=== PATIENT | female | born 1940 | race Caucasian/White ===

== ENCOUNTER 2017-06-30 17:23 | Observation (INO) | payer MEDICARE, BC ==
[~2017-06-30 17:23] MED LIST: ISOVUE-370 76%-LOCM 1 ML ONE
[2017-06-30 18:06] LABS: #Eosinphils 0.1 thou/uL (0.0-0.7); #Lymphocytes 0.5 thou/uL (1.20-3.40); #Monocytes 0.3 thou/uL (0.11-0.59); #Neutrophils 9.4 thou/uL (1.40-6.50); %Basophils 0.2 % (0.0-1.0); %Eosinophils 0.8 % (0.0-10.0); %Lymphocytes 4.4 % (21.0-51.0); Hematocrit 41.4 % (36.0-47.0); Mean Platelet Volume 7.9 fL (7.4-10.4); Red Blood Cell (RBC) Count 4.31 mill/uL (4.20-5.40); White Blood Cell (WBC) Count 10.3 thou/uL (4.8-10.8)
[2017-06-30 18:30] LABS: ALT (SGPT) 17 U/L (8-55); AST (SGOT) 28 U/L (5-34); Alkaline Phosphatase 158 U/L (40-150); Anion Gap 16 mmol/L (10-20); BUN (Urea Nitrogen) 26 mg/dL (9.8-20.1); Bilirubin, Total 0.5 mg/dL (0.2-1.2); CK (CPK) 153 U/L (29-168); Calc. Creatinine Clearance 0 mL/min (70-130); Calcium 9.5 mg/dL (7.8-10.44); Carbon Dioxide 21 mmol/L (23-31); Chloride 96 mmol/L (98-107); Estimated GFR-MDRD 44; Globulin 3.8 g/dL (2.4-3.5); Lipase 44 U/L (8-78); Protein, Total 8.2 g/dL (6.0-8.3); Troponin I Less than 0.010 ng/mL (< 0.028)
--- NOTE | 2017-06-30 20:44 | RAD ---
AP VIEW OF THE CHEST: 06/30/17 INDICATION: Near syncope. COMPARISON: None. 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 There is mild cardiomegaly. There is mild bibasilar fibrosis versus a telectasis. There is some blunting of the left costophrenic angle which may reflect pleural thickeni ng or small pleural effusion. Chronic osseous changes are seen. POS: [facility]
[2017-06-30 20:55] LABS: Anion Gap 17 mmol/L (10-20); BUN (Urea Nitrogen) 23 mg/dL (9.8-20.1); Calc. Creatinine Clearance 0 mL/min (70-130); Calcium 9.3 mg/dL (7.8-10.44); Carbon Dioxide 20 mmol/L (23-31); Chloride 96 mmol/L (98-107); Estimated GFR-MDRD 56
--- NOTE | 2017-06-30 21:38 | CT ---
CTA OF THE THORAX UTILIZING IV CONTRAST WITH PE PROTOCOL AND 3D REFORMATTING IMAGING 06/30/17 INDICATION: 77-year-old female who had a near syncopal episode at work where she felt as though she was getting hotter and hotter and became diaphoretic. Patient states she currently feels normal. The episode las jason approximately 45 minutes. History of breast cancer. COMPARISON: None. FINDINGS: No central or segmental pulmonary embolus is evident. There are mild coronary artery calcifications. There are mild vascular calcifications of the thoracic aorta. There is a small amount of fluid in t he pericardial space. There is a small sized hiatal hernia. No pathologically enlarged lymph nodes a re grossly evident. A few shotty appearing lymph nodes are seen within the mediastinum. There are areas of subsegmental volume loss within the right middle lobe, lingula and both lower lob es are identified containing a left Bochdalek's hernia. There is tiny 5 mm pulmonary nodule in the l eft lower lobe. There is a 5 mm ground glass nodule in the left upper lobe on image 22 of series 3. There is a small sub 4 mm pulmonary nodule within the posterior right upper lobe. The visualized upp er abdomen is unremarkable for acute abnormality. There is scattered degenerative and osteoarthritic change. There is diffuse osteopenia. IMPRESSION: 1. No central or segmental pulmonary embolus. 2. Small amount of subsegmental volume loss right middle lobe, lingula and both lower lobes. 3. Scattered pulmonary nodules, largest measuring 5 mm within the left upper lobe. Patient has a history of breast cancer, followup examination in three months is recommended to document stabilit y. 4. Small hiatal hernia. Code LN POS: [facility]
--- NOTE | 2017-06-30 22:07 | HP ---
HISTORY OF PRESENT ILLNESS: Mrs. Angel is a 77-year-old woman. 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 She denies any associated chest pain. Denies any associated shortness of breath. She does not have any significant past medical history. No hypertension, diabetes, heart disease, o r lung disease. However, we have to mention that she was treated for breast cancer in the past and she is currently on hormone therapy. PAST SURGICAL HISTORY: Remarkable for lumpectomy due to breast cancer we mentioned earlier and she had previous and later hysterectomy. ALLERGIES: She does not have any known allergy. SOCIAL HISTORY: Does not smoke, does not drink. She claimed that she drank one beer every day, one can of beer. MEDICATIONS: She at home she was on Nexium and also Celebrex. PHYSICAL EXAMINATION: GENERAL: She denies any fever, denies any weakness. HEENT: No headache, no ocular pain, no sore throat, no rhinorrhea, no earache, no epistaxis. NECK: No neck pain, no neck stiffness. CARDIOVASCULAR: No shortness of breath. No chest pain and she had the syncopal episode as mentione d earlier. She had this syncopal episode we mentioned earlier. PULMONARY: She denies any coughing. GASTROINTESTINAL: She had this upset stomach mentioned earlier and also she has history of GERD. GENITOURINARY: No dysuria, no hematuria. ENDOCRINOLOGY: No heat or cold intolerance. No polyuria, polydipsia, or polyphagia. MUSCULOSKELETAL: Admits to arthralgias on and off. HEMATOLOGY: No abnormal bleeding, no ecchymosis. LYMPHATIC: No palpable lymphadenopathy, no painful lymphadenopathy. SKIN: No rash, no itching. ALLERGIES: No hayfever. NEUROLOGIC: No seizure. PSYCHIATRIC: No anxiety, no depression. PHYSICAL EXAMINATION: At the current time. She is alert and oriented, in no distress. VITAL SIGNS: Show a temperature of 97.8, pulse rate 84, respiratory rate 18, and blood pressure 164 /89. HEENT: Head is normocephalic and atraumatic. Both her pupils were equal and reactive. Ears and no se are normal. Oral mucosa is moist. Pharyngeal area is clear with no exudate, no hyperemia. NECK: Supple. There is no distention of the jugular vein. No lymphadenopathy felt. Thyroid gland not palpable. There is no carotid bruit. CHEST: Symmetrical with regular S1, S2. Lungs are clear. ABDOMEN: Soft. Bowel sound heard. I could not appreciate any organomegaly. There is no focal are a of tenderness. Limbs are anatomically normal. EXTREMITIES: She has no edema of the lower extremities. NEUROLOGIC: Neurologically, she moves all extremities. LABORATORY DATA: Her CBC done earlier showed WBC of 10.3, hemoglobin of 14.3, hematocrit of 41.4, M CV of 96.1, and platelet 276. Chemistry and electrolytes show sodium of 129, potassium of 4.3, chlo ride 96, CO2 of 21, BUN 26, creatinine 1.2, glucose 100, calcium 9.5, total bilirubin 0.5, AST 29, A LT 17, alkaline phosphatase 158. CPK 153. Troponin is less than 1.01. Total protein 8.2, albumin 4.4, globulin 3.8, and lipase 44. ASSESSMENT AND PLAN: This is a 77-year-old woman with no significant past medical history except for breast cancer which was treated with lumpectomy for which she is currently on hormone th erapy, who came in with syncopal episode. Her serum sodium was noticed to be low, suggestive of pos sible dehydration. We will start her on normal saline. We will, however, a cardiac event cannot be excluded. She was noted to have many PVCs under monitor upon arrival. We will schedule her for st ress test and also for an echocardiogram. Cardiology consult was called from the ER. She will be a dmitted to telemetry. Further evaluation and management will depend on the course of the hospitaliz ation in her response to therapy. By the meantime, we will check her thyroid profile in view of her low serum sodium.
[2017-06-30] MEDS ORDERED: Ondansetron HCl/PF 4 MG/2 ML Vial IVP PRN (22:10)
[2017-06-30] MEDS ORDERED: Ondansetron ODT 4 MG TAB SL PRN (22:10)
[2017-06-30] MEDS ORDERED: Metoprolol Tartrate 25 MG TAB PO SCH (22:30)
[2017-06-30] MEDS ORDERED: Enoxaparin Sodium 40 MG/0.4 ML SYRINGE SC SCH (22:30)
[2017-06-30 23:10] LABS: Troponin I Less than 0.010 ng/mL (< 0.028)
[2017-06-30] MEDS: Sodium Chloride 0.9% 1,000 ML IV SCH (23:12)
[2017-07-01 00:49] VITALS: BMI 23.1
[2017-07-01 01:47] LABS: Troponin I Less than 0.010 ng/mL (< 0.028)
[2017-07-01 02:19] LABS: Anion Gap 17 mmol/L (10-20); BUN (Urea Nitrogen) 23 mg/dL (9.8-20.1); Calc. Creatinine Clearance 49 mL/min (70-130); Calcium 8.9 mg/dL (7.8-10.44); Carbon Dioxide 19 mmol/L (23-31); Chloride 98 mmol/L (98-107); Estimated GFR-MDRD 56
[2017-07-01] MEDS ORDERED: Estradiol 1 MG TAB PO SCH (09:00)
[2017-07-01] MEDS ORDERED: Enoxaparin Sodium 40 MG/0.4 ML SYRINGE SC SCH (09:00)
[2017-07-01] MEDS ORDERED: Aspirin 325 MG TAB PO SCH (09:00)
[2017-07-01] MEDS ORDERED: Metoprolol Tartrate 25 MG TAB PO SCH (09:00)
--- NOTE | 2017-07-01 13:19 | CON ---
DATE OF CONSULTATION: 07/01/2017 CARDIOLOGY CONSULTATION REASON FOR CONSULTATION: Syncope. HISTORY OF PRESENT ILLNESS: Mrs. Angel is a very pleasant 77-year-old white female who comes to the hospital for syncopal spell. 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 Yesterday, she was at her restaurant and she was working, she was helping out as the r estaurant was really busy. She felt it was really hot and she was sweating a lot. She eventually w as done with lunchtime service and when she sat down on the stool, she felt little dizzy and lighthe aded and then suddenly she just slumped over. One of the people at work caught her, so she never re ally injured herself or hit the ground, but EMS was called and they brought her in for further evalu ation. When EMS has got through, EKG showed sinus rhythm with several PVCs. No ischemic changes on EKG. PAST MEDICAL HISTORY: History of breast cancer. PAST SURGICAL HISTORY: 1. Lumpectomy done by Dr. Tang several years back. 2. and hysterectomy. OUTPATIENT MEDICATIONS: 1. Celebrex. 2. Nexium. ALLERGIES: No known drug allergies. SOCIAL HISTORY: No tobacco or drugs. She drinks a can of beer every day. REVIEW OF SYSTEMS: A 12-point review of systems was done and is all negative unless stated in the hi story of present illness. PHYSICAL EXAMINATION: VITAL SIGNS: Temperature 98.6, pulse 73, respiratory rate 20, satting 95% on room air, blood pressu re 131/71. GENERAL: Awake, alert, and oriented x3, in no distress. HEENT: Normocephalic, atraumatic. NECK: Supple. LUNGS: Clear. CARDIOVASCULAR: S1, S2, no S3, S4, no murmurs or rubs. ABDOMEN: Soft, positive bowel sounds. EXTREMITIES: No edema. SKIN: Warm and dry. LABORATORY DATA: Laboratory work was reviewed. Sodium was low at 128 on admission, up to 129 with some fluids, normal potassium, chloride of 96, carbon dioxide 20, anion gap of 17, BUN of 23, creati nine 0.97, GFR of 56. Troponin was less than essay limit x3. TSH and free T4 were normal. Lipase was normal. Triglycerides of 64, cholesterol total of 182, LDL of 122, HDL of 47. Coags were littl e bit high. CBC was normal. IMAGING: CT of the chest was reviewed, no pulmonary embolism. She did have small amount of subsegm ental volume loss in the right middle lobe and lingula on both lower lobes. There are scattered pul monary nodules, the largest measuring 5 mm in the left upper lobe. Recommendation to follow up CT i n 3 months. Chest x-ray was reviewed. EKG was reviewed, no ischemic changes. ASSESSMENT AND PLAN: Syncope: It sounds like she was a little dehydrated. She is feeling much bet ter now as she has received some fluids. The only reason that was found by EMS was just several pre mature ventricular contractions in which she was in sinus rhythm. She should be able to be discharg ed home if her stress is normal. Echocardiogram showed normal left ventricular function with no angel or valvular abnormalities. We will plan on following up with her in 1 month. If there is any recur rence, we will plan on link recorder for further evaluation of the syncope. Otherwise, she has kriss ined in sinus rhythm throughout her hospitalization on telemetry. Thank for allowing me to participate in the care of your patient. We will follow.
[2017-07-01] MEDS: Sodium Chloride 0.9% 1,000 ML IV SCH (13:44)
--- NOTE | 2017-07-01 13:51 | NM ---
MYOCARDIAL PERFUSION AND QUANTITATIVE GATED SPECT STUDY: HISTORY: Chest pain. Syncope. DOSE: Technetium 99m Cardiolite, 27 millicuries for stress portion of exam and 9 mm for the rest portion o f exam. TECHNIQUE: The patient was stressed using a Julio César protocol. Multiplanar myocardial perfusion images are obtained. FINDINGS: Images demonstrate no evidence of myocardial ischemia or scar. No evidence of a reversible defect i s seen. Ejection fraction measures 65%. IMPRESSION: Normal myocardial perfusion and quantitative gated SPECT study. POS: [facility]
[2017-07-01 13:53] VITALS: BP 143/76; TEMP 98.2
--- NOTE | 2017-07-01 15:27 | DIS ---
DATE OF ADMISSION: 06/30/2017 DATE OF DISCHARGE: 07/01/2017 PRIMARY CARE PHYSICIAN: Dr. Bernadine Hardy. DISCHARGE DIAGNOSIS: Syncope, no recurrence. CONDITION OF PATIENT AT THE TIME OF DISCHARGE: Stable. I assessed Ms. Angel on the day of discharge. She denies any chest pain or shortness of breath. Vit al signs are stable. S1 and S2 are heard, regular. Lungs are clear to auscultation bilaterally. DISCHARGE MEDICATIONS: Anastrozole 1 mg daily, celecoxib 100 mg daily, cetirizine 10 mg daily as ne eded, and Nexium 20 mg daily. HOSPITAL COURSE: Ms. Angel is a pleasant 77-year-old lady, who was admitted to [facility] on 06/30/2017 for a syncopal episode. She had CT scan of the chest, which did not reve al any central or segmental pulmonary embolus. She had a small amount of subsegmental volume loss a t the right middle lobe, lingula, and both lower lobes. She also had scattered pulmonary nodules. The radiologist recommends followup examination in 3 months to document stability. She was seen by Cardiology Service. She had a nuclear stress test, which was normal. Her left vent ricular ejection fraction was 65%. She also had a 2D echocardiogram, which showed an ejection fract ion estimated at 60% to 65%, normal left ventricular size and wall thickness and grade 1/3 diastolic dysfunction. Right ventricle was not clearly visualized. She is advised to follow up with Cardiology Service in 1 month and with her primary care provider in 3-5 days. Many thanks for allowing me to participate in your patient's care. Please feel free to contact me w ith any questions or concerns. DISCHARGE DESTINATION: Home.
--- NOTE | 2017-07-07 13:45 | STRESS ---
Acquisition Time: 2017-07-01 10:38:58 Total Exercise Time: 00:06:00 Test Indications: CHEST PAIN Medications: Protocol: PANCHO Max HR: 123 BPM 86% of Pred: 143 BPM Max BP: 160/082 mmHG Max Work Load: 7.0 METS RESTING ECG: NORMAL SINUS RHYTHM AT 79 BPM WITH OCCATIONAL PVCs. SYMPTOMS: NONE NORMAL BP RESPONSE ECTOPY: OCCATIONAL PVCs NOTED IN SHORT RUNS OF BIGEMINY ECG STRESS: 1MM DOWNSLOPING ST DEPRESSION INTERPRETATION: NEGATIVE GXT/AWAIT NUCLEAR IMAGES FOR DEFINITIVE DIAGNOSIS Confirmed by THOMAS OCAMPO M.D. ([id number] on 07/07/2017 1:44:59 PM Referred By: MD Naman MCCLAIN Confirmed By:THOMAS OCAMPO M.D.
== END 2017-07-01 14:55 | disposition home or self-care (01) ==
LOC: ERS 17:23 → 2SW 20:00
PROVIDERS: ADMIT Hospitalist; ATTEND Hospitalist
DX: R55 Syncope and collapse (principal); Z79.899 Other long term (current) drug therapy; Z90.11 Acquired absence of right breast and nipple; Z90.710 Acquired absence of both cervix and uterus; Z98.890 Other specified postprocedural states; Z87.891 Personal history of nicotine dependence
CPT/HCPCS: 71010; 71275; 78452; 80048 ×2; 80061; 82550; 82553; 83690; 84439; 84484 ×3; 85379; 93005; 93017; 93306; 94760 ×2; 96360; 96361; 96372 ×2; 99285; A9500; G0378; 36415; 80053; 84443; 85025; A4216; J1650

== ENCOUNTER 2019-04-08 07:59 | Outpatient (CLI) | payer MEDICARE, BC ==
--- NOTE | 2019-04-09 09:51 | NM ---
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 TECHNIQUE: Oral administration 252 uCi [id number] by pill. 6 hour and 24-hour radioiodine uptake studies performed. Thyroid scintigraphy in 3 views. FINDINGS: Scintigram demonstrates fairly homogeneous uptake between the left and right lobes with no obvious ho t or cold nodules. Six-hour uptake: 6% (normal range 6-18%) 24 hour uptake: 13% (normal range 10-30%). IMPRESSION: Normal
== END 2019-04-08 08:00 | disposition home or self-care (01) ==
LOC: NM 07:59
PROVIDERS: ATTEND Internal Medicine Endocrinology, Diabetes & Metabolism
DX: E05.90 Thyrotoxicosis, unspecified without thyrotoxic crisis or storm (principal)
CPT/HCPCS: 78014; A9516

== ENCOUNTER 2021-08-06 11:02 | Outpatient (CLI) | payer MEDICARE, BC | END 2021-08-06 11:03 | disposition home or self-care (01) | LOC: BICMAMMO 11:02 | PROVIDERS: ATTEND Internal Medicine | DX: Z12.31 Encounter for screening mammogram for malignant neoplasm of breast (principal); Z98.890 Other specified postprocedural states; Z85.3 Personal history of malignant neoplasm of breast | CPT/HCPCS: 77063; 77067 ==

== ENCOUNTER 2021-08-24 12:42 | Outpatient (CLI) | payer MEDICARE, BC | END 2021-08-24 12:43 | disposition home or self-care (01) | LOC: TBSIIMAG 12:42 | PROVIDERS: ATTEND Neurological Surgery | DX: M43.16 Spondylolisthesis, lumbar region (principal); M47.816 Spondylosis without myelopathy or radiculopathy, lumbar region; Z98.890 Other specified postprocedural states | CPT/HCPCS: 72100 ==

== ENCOUNTER 2021-10-27 10:37 | Outpatient (CLI) | payer MEDICARE, BC | END 2021-10-27 10:38 | disposition home or self-care (01) | LOC: TBSIIMAG 10:37 | PROVIDERS: ATTEND Neurological Surgery | DX: M48.062 Spinal stenosis, lumbar region with neurogenic claudication (principal); M47.816 Spondylosis without myelopathy or radiculopathy, lumbar region; Z98.890 Other specified postprocedural states | CPT/HCPCS: 72100 ==

== ENCOUNTER 2022-10-26 11:47 | Outpatient (CLI) | payer MEDICARE, BC | END 2022-10-26 11:48 | disposition home or self-care (01) | LOC: BICMAMMO 11:47 | PROVIDERS: ATTEND Internal Medicine | DX: Z12.31 Encounter for screening mammogram for malignant neoplasm of breast (principal); Z85.3 Personal history of malignant neoplasm of breast; Z98.890 Other specified postprocedural states | CPT/HCPCS: 77063; 77067 ==

== ENCOUNTER 2023-08-10 13:52 | Outpatient (CLI) | payer MEDICARE, BC ==
[2023-08-10 15:22] LABS: #Monocytes 0.5 10x3/uL (0.0-1.1); %Basophils 0.2 % (0.0-2.0); %Eosinophils 0.7 % (0.0-6.0); %Lymphocytes 24.1 % (18.0-47.0); %Monocytes 7.7 % (0.0-10.0); Hematocrit 35.6 % (34.9-44.5); Hemoglobin 12.2 g/dL (12.0-15.5); Mean Corpuscular HGB CONC 34.3 g/dL (32.0-36.0); Mean Corpuscular Volume 90.4 fl (81.6-98.3); Mean Platelet Volume 10.7 fl (7.4-10.4); Platelet Count 432 10x3/uL (150-450); RBC Distribution Width 10.8 % (11.5-14.5); Red Blood Cell (RBC) Count 3.94 10x6/uL (3.90-5.03)
[2023-08-10 15:37] LABS: Prothrombin Time 10.9 sec (9.5-12.1)
[2023-08-10 15:44] LABS: Anion Gap 15 mmol/L (10-20); BUN (Urea Nitrogen) 21 mg/dL (9.8-20.1); Calc. Creatinine Clearance 0 mL/min (70-130); Calcium 9.1 mg/dL (7.8-10.44); Carbon Dioxide 23 mmol/L (23-31); Chloride 99 mmol/L (98-107); Estimated GFR 65; Glucose 104 mg/dL (83-110); Potassium 4.6 mmol/L (3.5-5.1); Sodium 132 mmol/L (136-145)
== END 2023-08-10 13:53 | disposition home or self-care (01) ==
LOC: LABBT 13:52
PROVIDERS: ATTEND Orthopaedic Surgery
DX: Z01.818 Encounter for other preprocedural examination (principal); M17.12 Unilateral primary osteoarthritis, left knee
CPT/HCPCS: 80048; 85025; 85610; 87081; 93005; 93010

== ENCOUNTER 2023-08-14 06:28 | Observation (INO) | payer MEDICARE, BC ==
[2023-08-10 14:50] VITALS: BMI 21.5
[2023-08-14] MEDS ORDERED: Tranexamic Acid 1,000 MG/10 ML VIAL ONE (07:02)
[2023-08-14] MEDS ORDERED: Sodium Chloride 0.9% 100 ML ONE ×2 (07:03→09:33)
[2023-08-14] MEDS ORDERED: Vancomycin 1 GM/200 ML (FROZEN) BAG ONE (07:03)
[2023-08-14] MEDS ORDERED: fentaNYL 50 mcg/mL 1 mL Vial ONE ×2 (08:11→11:17)
[2023-08-14] MEDS ORDERED: Midazolam HCl 2 mg/2 ml Vial ONE (08:11)
[2023-08-14] MEDS ORDERED: Bupivacaine PF 0.5% 30 ML VIAL ONE ×2 (08:12→09:09)
[2023-08-14] MEDS ORDERED: fentaNYL 50 mcg/mL 1 mL Vial SLOW IVP PRN (09:03)
[2023-08-14] MEDS ORDERED: fentaNYL PF 100 MCG/2 ML SYRINGE ONE (09:03)
[2023-08-14] MEDS ORDERED: EPINEPHrine 1 MG/ML VIAL ONE (09:08)
[2023-08-14] MEDS ORDERED: HYDROcodone/Acetaminophen 10/325 mg Tablet PO PRN (09:15)
[2023-08-14] MEDS ORDERED: Zolpidem Tartrate 5 MG TAB PO PRN ×2 (09:15→09:33)
[2023-08-14] MEDS ORDERED: Ropivacaine 0.2% 550 ML 550 ML NERVE BLCK SCH (09:15)
[2023-08-14] MEDS ORDERED: Promethazine HCl 25 MG/ML VIAL IM PRN ×3 (09:15→11:08)
[2023-08-14] MEDS ORDERED: Ondansetron PF 4 MG/2 ML Vial IVP PRN ×2 (09:15→09:33)
[2023-08-14] MEDS ORDERED: traMADol HCl 50 MG TAB PO PRN ×2 (09:15)
[2023-08-14] MEDS ORDERED: CEFAZOLIN 2 GM VIAL ONE (09:20)
[2023-08-14] MEDS ORDERED: diphenhydrAMINE 25 MG CAP PO PRN (09:33)
[2023-08-14] MEDS ORDERED: Acetaminophen 325 MG TAB PO PRN (09:33)
[2023-08-14] MEDS ORDERED: Ondansetron PF 4 MG/2 ML Vial ONE (09:41)
[2023-08-14] MEDS ORDERED: Glycopyrrolate 0.2 MG/ML 5 ML SYRINGE ONE (09:41)
[2023-08-14] MEDS ORDERED: Lidocaine 1% PF 5 ML VIAL ONE (09:41)
[2023-08-14] MEDS ORDERED: Rocuronium Bromide 10 MG/ML (10ML VIAL) ONE (09:41)
[2023-08-14] MEDS ORDERED: PROPOFOL 200 MG/20 ML VIAL ONE (09:41)
[2023-08-14] MEDS ORDERED: NEOSTIGMINE 3 MG/3 ML SYR 3 MG/3 ML SYRINGE ONE (09:41)
[2023-08-14] MEDS ORDERED: Dexamethasone 20 MG/5 ML VIAL ONE (09:41)
[2023-08-14] MEDS ORDERED: Morphine Sulfate 2 MG/ML SYRINGE SLOW IVP PRN (11:08)
[2023-08-14] MEDS ORDERED: Ondansetron HCl/PF 4 MG/2 ML Vial IVP PRN (11:08)
[2023-08-14] MEDS: Ketorolac Tromethamine 30 MG/ML VIAL IVP SCH ×3 (13:32→23:50)
[2023-08-14] MEDS: HYDROcodone/Acetaminophen 10/325 mg Tablet PO PRN ×2 (13:57→21:08)
[2023-08-14] MEDS: Sodium Chloride 0.9% 1,000 ML IV SCH ×2 (13:58→17:25)
[2023-08-14] MEDS: CEFAZOLIN 2 GM in Sodium Chloride 0.9% 100 ML IVPB SCH ×2 (13:58→21:10)
[2023-08-14] MEDS: Senokot S 8.6-50 MG TAB PO SCH (21:07)
[2023-08-14] MEDS: Aspirin 81 mg Enteric Coated Tablet PO SCH (21:08)
[2023-08-14] MEDS: Ferrous Gluconate 324 MG TAB PO SCH (21:08)
[2023-08-15 03:53] VITALS: TEMP 98
[2023-08-15] MEDS: Sodium Chloride 0.9% 1,000 ML IV SCH (04:59)
[2023-08-15] MEDS: Ketorolac Tromethamine 30 MG/ML VIAL IVP SCH (05:27)
[2023-08-15 06:12] LABS: Hematocrit 27.2 % (36.0-47.0); Hemoglobin 9.3 g/dL (12.0-16.0); Mean Corpuscular HGB CONC 34.2 g/dL (32.0-36.0); Mean Corpuscular Hemoglobin 31.1 pg (27.0-31.0); Mean Platelet Volume 10.1 fL (7.4-10.4); Platelet Count 252 10x3/uL (130-400); Red Blood Cell (RBC) Count 2.99 mill/uL (4.20-5.40); White Blood Cell (WBC) Count 5.3 10x3/uL (4.8-10.8)
[2023-08-15 08:26] VITALS: BP 146/68
[2023-08-15] MEDS ORDERED: Multivitamin W/ Minerals 1 TAB PO SCH (09:00)
[2023-08-15] MEDS ORDERED: NIFEdipine XL 30 MG ER.TAB PO SCH (09:00)
[2023-08-15] MEDS ORDERED: Non-Formulary Item 1 EACH (Fexofenadine Hcl [Allegra Allergy] 180 MG Tablet) PO SCH (09:00)
[2023-08-15] MEDS ORDERED: Loratadine 10 MG TAB PO SCH (09:00)
[2023-08-15] MEDS ORDERED: Non-Formulary Item 1 EACH (Esomeprazole Magnesium [Nexium 24hr] 20 MG Tablet.Dr) PO SCH (09:00)
[2023-08-15] MEDS ORDERED: Montelukast Sodium 10 mg Tablet PO SCH (09:00)
[2023-08-15] MEDS: Senokot S 8.6-50 MG TAB PO SCH (09:22)
[2023-08-15] MEDS: Aspirin 81 mg Enteric Coated Tablet PO SCH (09:22)
[2023-08-15] MEDS: Ferrous Gluconate 324 MG TAB PO SCH (09:22)
[2023-08-15] MEDS: HYDROcodone/Acetaminophen 10/325 mg Tablet PO PRN (09:39)
== END 2023-08-15 11:13 | disposition home or self-care (01) ==
LOC: SDC 06:28 → SURG A 13:14
PROVIDERS: ADMIT Orthopaedic Surgery; ATTEND Orthopaedic Surgery
PROC: 0SRD0JZ Replacement of Left Knee Joint with Synthetic Substitute, Open Approach (ICD-10-PCS; principal; 2023-08-14)
DX: M17.12 Unilateral primary osteoarthritis, left knee (principal); I10 Essential (primary) hypertension; K21.9 Gastro-esophageal reflux disease without esophagitis; Z90.710 Acquired absence of both cervix and uterus; Z87.891 Personal history of nicotine dependence; Z79.899 Other long term (current) drug therapy
CPT/HCPCS: 27447; 73560; 85027; 97110 ×2; 97116 ×2; 97530; A4306; C1776; J0171; J3010; J3370; 36415; J1100; J1885; J2250; J2405; J2704; J2795; J3490; J7050; S0020

== ENCOUNTER → 2024-03-13 | Day surgery (SDC) | payer MEDICARE, BC ==
[2024-03-12 12:11] VITALS: BMI 19.8
[~2024-03-13] MED LIST changes: -ISOVUE-370 76%-LOCM 1 ML ONE; +PHENYLEPHRINE-NS 100 MCG/ML 10 ML SYRINGE ONE; +PROPOFOL 20 ML ONE
[2024-03-13 07:16] LABS: #Basophils Less than 0.03 10x3/uL (0.0-0.2); %Basophils 0.4 % (0.0-1.0); %Eosinophils 8.9 % (0.0-10.0); %Lymphocytes 30.3 % (21.0-51.0); %Monocytes 11.1 % (0.0-10.0); %Neutrophils 49.3 % (42.0-75.0); Hemoglobin 11.4 g/dL (12.0-16.0); Mean Corpuscular HGB CONC 32.6 g/dL (32.0-36.0); Mean Corpuscular Hemoglobin 28.5 pg (27.0-31.0); Mean Corpuscular Volume 87.5 fL (78.0-98.0); Platelet Count 361 10x3/uL (130-400); RBC Distribution Width 12.6 % (11.5-14.5)
[2024-03-13 07:34] LABS: Anion Gap 15 mmol/L (10-20); BUN (Urea Nitrogen) 18 mg/dL (9.8-20.1); Calc. Creatinine Clearance 36 mL/min (70-130); Calcium 8.9 mg/dL (7.8-10.44); Carbon Dioxide 22 mmol/L (23-31); Chloride 102 mmol/L (98-107); Estimated GFR 60; Glucose 95 mg/dL (83-110); Potassium 4.2 mmol/L (3.5-5.1); Sodium 135 mmol/L (136-145)
== END ==
LOC: SDC 06:08
PROVIDERS: ATTEND Internal Medicine Cardiovascular Disease
PROC: 5A2204Z Restoration of Cardiac Rhythm, Single (ICD-10-PCS; principal; 2024-03-13)
DX: I48.91 Unspecified atrial fibrillation (principal); E78.00 Pure hypercholesterolemia, unspecified; I10 Essential (primary) hypertension; I51.9 Heart disease, unspecified; I21.4 Non-ST elevation (NSTEMI) myocardial infarction; Z90.710 Acquired absence of both cervix and uterus; Z95.1 Presence of aortocoronary bypass graft; Z98.890 Other specified postprocedural states; Z79.82 Long term (current) use of aspirin; Z87.891 Personal history of nicotine dependence; Z79.899 Other long term (current) drug therapy; Z88.2 Allergy status to sulfonamides
CPT/HCPCS: 80048; 85025; 92960; 93005; J2704; 36415; 93010

== ENCOUNTER 2025-07-28 11:34 | Observation (INO) | payer MEDICARE, BC ==
[~2025-07-28 11:34] MED LIST changes: +Iopamidol-370 76% 500 ML MDV (1 ML CHARGE) ONE; -PHENYLEPHRINE-NS 100 MCG/ML 10 ML SYRINGE ONE; -PROPOFOL 20 ML ONE
[2025-07-28 12:39] LABS: #Basophils Less than 0.03 10x3/uL (0.0-0.2); #Eosinophils 0.17 10x3/uL (0.0-0.7); #Monocytes 0.66 10x3/uL (0.11-0.59); #Neutrophils 3.08 10x3/uL (1.40-6.50); %Basophils 0.4 % (0.0-1.0); %Eosinophils 3.4 % (0.0-10.0); %Lymphocytes 21.8 % (21.0-51.0); %Monocytes 13.1 % (0.0-10.0); %Neutrophils 60.9 % (42.0-75.0); Hematocrit 37.1 % (36.0-47.0); Hemoglobin 12.7 g/dL (12.0-16.0); Mean Corpuscular Hemoglobin 31.1 pg (27.0-31.0); Mean Corpuscular Volume 90.9 fL (78.0-98.0); Platelet Count 325 10x3/uL (130-400); Red Blood Cell (RBC) Count 4.08 mill/uL (4.20-5.40); White Blood Cell (WBC) Count 5.05 10x3/uL (4.8-10.8)
[2025-07-28 13:12] LABS: ALT (SGPT) 29 U/L (Less than 34); AST (SGOT) 62 U/L (11-34); Albumin 4.1 g/dL (3.1-4.5); Alkaline Phosphatase 240 U/L (40-110); Anion Gap 14 mmol/L (10-20); BUN (Urea Nitrogen) 12 mg/dL (9.8-20.1); Bilirubin, Total 0.5 mg/dL (0.3-1.2); Calc. Creatinine Clearance 0 mL/min (70-130); Calcium 8.7 mg/dL (7.8-10.44); Carbon Dioxide 23 mmol/L (23-31); Chloride 96 mmol/L (98-107); Globulin 4.1 g/dL (2.4-3.5); Glucose 89 mg/dL (83-110); Magnesium 1.9 mg/dL (1.6-2.6); Potassium 4.7 mmol/L (3.5-5.1); Sodium 128 mmol/L (136-145)
[2025-07-28] MEDS ORDERED: Furosemide 40 MG (4 mL) VIAL ONE (14:26)
[2025-07-28] MEDS ORDERED: Ondansetron PF 4 MG/2 ML Vial IVP PRN (15:47)
[2025-07-28] MEDS ORDERED: Guaifenesin DM 100-10/5 ML UDCUP PO PRN (15:47)
[2025-07-28] MEDS ORDERED: Calcium Carbonate 500 MG ChewTAB PO PRN (15:47)
[2025-07-28] MEDS: Acetaminophen 325 MG TAB PO SCH (17:53)
[2025-07-28] MEDS: Carvedilol 6.25 MG TAB PO SCH (17:53)
[2025-07-28 17:57] VITALS: BMI 20.5
[2025-07-28] MEDS: Amiodarone 200 MG TAB PO SCH (20:38)
[2025-07-29 04:59] VITALS: TEMP 98.1
[2025-07-29] MEDS: Cyclobenzaprine 10 MG TAB PO SCH (05:18)
[2025-07-29 05:42] LABS: #Basophils Less than 0.03 10x3/uL (0.0-0.2); #Eosinophils Less than 0.03 10x3/uL (0.0-0.7); #Monocytes 0.20 10x3/uL (0.11-0.59); #Neutrophils 1.88 10x3/uL (1.40-6.50); %Basophils 0.0 % (0.0-1.0); %Eosinophils 0.0 % (0.0-10.0); %Lymphocytes 31.0 % (21.0-51.0); %Monocytes 6.6 % (0.0-10.0); %Neutrophils 62.1 % (42.0-75.0); Hematocrit 34.5 % (36.0-47.0); Hemoglobin 11.8 g/dL (12.0-16.0); Mean Corpuscular Hemoglobin 31.0 pg (27.0-31.0); Mean Corpuscular Volume 90.6 fL (78.0-98.0); Platelet Count 338 10x3/uL (130-400); Red Blood Cell (RBC) Count 3.81 mill/uL (4.20-5.40); White Blood Cell (WBC) Count 3.03 10x3/uL (4.8-10.8)
[2025-07-29 06:25] LABS: Anion Gap 14 mmol/L (10-20); BUN (Urea Nitrogen) 30 mg/dL (9.8-20.1); Calc. Creatinine Clearance 34 mL/min (70-130); Calcium 9.1 mg/dL (7.8-10.44); Carbon Dioxide 24 mmol/L (23-31); Chloride 98 mmol/L (98-107); Glucose 136 mg/dL (83-110); Potassium 4.2 mmol/L (3.5-5.1); Sodium 132 mmol/L (136-145)
[2025-07-29] MEDS: Pantoprazole 40 MG DR.TAB PO SCH (08:17)
[2025-07-29] MEDS: Enoxaparin 40 MG (0.4 mL) SYRINGE SC SCH (08:18)
[2025-07-29] MEDS: Furosemide 20 MG TAB PO SCH (08:19)
[2025-07-29] MEDS: FLU (Fluad Triv) 25-26 (65UP)PF 45 MCG/0.5 ML Syringe IM ONE (09:45)
[2025-07-29 13:39] VITALS: BP 154/68
== END 2025-07-29 14:00 | disposition home or self-care (01) ==
LOC: ERS 11:34 → ERHOLD 15:21 → INTOOBSV 15:21 → T4-A 17:47
PROVIDERS: ADMIT Internal Medicine; ATTEND Internal Medicine
PROC: B24BZZZ Ultrasonography of Heart with Aorta (ICD-10-PCS; principal; 2025-07-29)
DX: I11.0 Hypertensive heart disease with heart failure (principal); I50.33 Acute on chronic diastolic (congestive) heart failure; I25.10 Atherosclerotic heart disease of native coronary artery without angina pectoris; E87.1 Hypo-osmolality and hyponatremia; Z95.1 Presence of aortocoronary bypass graft; Z79.82 Long term (current) use of aspirin; Z79.899 Other long term (current) drug therapy
CPT/HCPCS: 71045; 71275; 80048; 83605; 83735; 83880; 84484 ×2; 85025; 93005; 93306; J1650; J1940; J2919; 36415; 80053; 84443; 96372; 96374; 96375; G0378; Q9967